=== PATIENT | male | born 1970 | race Caucasian/White ===

== ENCOUNTER → 2023-07-10 | Outpatient (CLI) | payer BC, SELFPAY ==
[2023-07-10 17:16] LABS: Amphetamine Urine VISTA NEGATIVE (<1000 ng/mL); Barbiturate Urine VISTA NEGATIVE (< 200 ng/mL); Benzodiazepine Urine VISTA NEGATIVE (< 200 ng/mL); Cocaine Urine VISTA NEGATIVE (< 300 ng/mL); Ecstacy Urine VISTA NEGATIVE (< 500 ng/mL); Methadone Urine VISTA NEGATIVE (< 300 ng/mL); PCP Urine VISTA NEGATIVE (< 25 ng/mL); THC Urine VISTA NEGATIVE (< 50 ng/mL); Vista UDS pH Range 5
== END | disposition home or self-care (01) ==
PROVIDERS: Referring Provider Anesthesiology Pain Medicine; Visit Provider Anesthesiology Pain Medicine
DX: F11.20 Opioid dependence, uncomplicated (principal)
CPT/HCPCS: 80307

== ENCOUNTER → 2024-04-30 | Outpatient (CLI) | payer BC, SELFPAY ==
--- NOTE | 2024-04-30 12:27 | NEURO_ITS ---
NCS and/or EMG Patient Report Ordering Doctor: Johnson Henley DATE OF SERVICE: 04/30/24 Simon presents with neck pain and numbness and tingling in both hands. Electrodiagnostic findings: Right median motor nerve demonstrates prolonged latency with normal amplitude and reduced conduction velocity. Right ulnar motor response, including conduction across the elbow is within normal limits. Prolonged right median sensory latency at the wrist. Prolonged right median and ulnar F?waves. Needle EMG testing was performed the upper limbs. All muscles tested, including cervical paraspinals, showed no evidence of denervation with normal motor unit action potentials. The patient refused testing of the left upper limb due to poor tolerance for the procedure. Electrodiagnostic impression: This is an abnormal study in the right upper limb 1. Electrodiagnostic findings are suggestive of right-sided median mo noneuropathy. This is consistent with a moderate right carpal tunnel syndrome. Multi Select Codes Neurology Neurology Interp Codes: 12853-79 Musc test done w/n test comp (interp) and 75484-83 Nrv cndj tst 5-6 studies (interp)
== END | disposition home or self-care (01) ==
PROVIDERS: PCP Family Medicine; Referring Provider Anesthesiology; Visit Provider Anesthesiology
DX: M54.12 Radiculopathy, cervical region (principal)
CPT/HCPCS: 95886; 95909

== ENCOUNTER 2024-07-01 05:56 | Day surgery (SDC) | payer BC, SELFPAY ==
[2024-07-01 06:35] VITALS: BP 164/87; PULSE 65; RESP 16; TEMP 36.7; O2SAT 98; BMI 43.5
[2024-07-01] MEDS: Lactated Ringers 1,000 ML 15 ML IV (06:38)
[2024-07-01 07:13] VITALS: BP 164/87; PULSE 65; RESP 16; TEMP 36.7; O2SAT 98
--- NOTE | 2024-07-01 07:13 | PRE.ANES_ITS ---
ASA Classification* ASA Classification ASA Classification: 3 Assessment & Plan Anesthesia* Anesthesia Assessment Anesthesia Assessment: Discussed sedation and/or anesthesia options, risks, benefits, and alternatives with patient/parents/legal guardian/POA. Questions invited. The patient/parents/legal guardian/POA seems to understand and agrees to proceed with anesthesia plan. Reviewed the physical assessment, medical history, allergy history and patient home medications list prior to surgery/procedure/anesthetic and documented any changes. Performed airway and anesthesia risk assessments. 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 When Was Last Pacemaker Check QUESTION #4 FULL TEXT: You/Your Family Experience fever (hyperthermia) with Anesthesia Last Oral Intake Last Oral intake: Last Oral Intake NPO since 00:00 07/01/24 06:35 Meds taken in AM with sips of water? 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 operator Female No 06/19/24 09:07 HX of Motion Sickness No 06/19/24 09:07 HX of N/V After Surgery No 06/19/24 09:07 Non-Smoker Yes 06/19/24 09:07 Duration of Surgery greater No 06/19/24 09:07 than 60 minutes Number of Risk Factors 1 06/19/24 09:07 PONV Score Low Risk 06/19/24 09:07 Height & Weight Height & Weight: Anesthesia: Height & Weight Height 5 ft 10 in 07/01/24 06:35 Weight: 137.8 kg 07/01/24 06:35 Body Mass Index (BMI) 43.5 07/01/24 06:35 Respiratory Assessment Respiratory Assessment - cold type composing machine operator: Respiratory Tract Infection Hx - cold type composing machine operator Hx Respiratory Tract Infection No 06/19/24 09:07 STOP Sleep Apnea STOP Sleep Apnea - cold type composing machine operator: STOP Sleep Apnea - cold type composing machine operator Hx Hypertension Yes 06/19/24 09:07 Hx Sleep Apnea Yes 06/19/24 09:07 CPAP No: NON COMPLIANT 06/19/24 09:07 BIPAP No 06/19/24 09:07 Do you snore loudly (louder than talking or can be heard Do you often feel tired/ fatigued/ sleepy during daytime? Has anyone observed you stop breathing during sleep? STOP Results Positive 06/19/24 09:07 QUESTION #5 FULL TEXT : Do you snore loudly (louder than talking or can be heard through closed doors)? 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 Specify any problems Hx of Preganancy in last 3 N/A 06/19/24 09:07 Months Nurse Filling Out Transfusion VLEHMAN 06/19/24 09:07 & Questions: Date: 06/19/24 06/19/24 09:07 Time: 09:22 06/19/24 09:07 Patient unable to answer at this time (ie. 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 operator: /Reproductive Hx- cold type composing machine operator Hx Now Gestational Age (in weeks): EDC: Hx Hx Para Hx Section SAB Active Medications Active Medications: Current Medications Generic Name Dose Route Start Last Admin Trade Name Freq PRN Reason Stop Dose Admin Cefazolin Sodium 3 gm/ Sodium 115 mls @ 150 mls/hr 07/01/24 07:30 Chloride IV 07/01/24 08:15 PREOP ONE Lactated Ringer's 1,000 mls @ 15 mls/hr 07/01/24 06:15 07/01/24 06:38 IV 15 mls/hr .Q48H ELENA Administration PFSH Medical History Wears dentures Wears glasses MRSA infection Uses wheelchair Arthritis Back pain Gastric reflux Sleep apnea Shortness of breath on exertion Former smoker COPD (chronic obstructive pulmonary disease) History of edema Leg cramps History of stress test History of torn meniscus of left knee Reactive airway disease with wheezing with acute exacerbation Urinary frequency Tinea cruris Sciatic pain Plantar fasciitis, bilateral Peripheral tear of meniscus of left knee Papilloma of skin of axilla Osteoarthritis of right knee Osteoarthritis of left knee Impaired fasting glucose Lumbar herniated disc Lumbosacral radiculopathy Lymphedema of both lower extremities Lymph node enlargement Median nerve entrapment Mixed hyperlipidemia Migraine VU (obstructive sleep apnea) Nocturia Multiple nodules of lung Hypertension GERD (gastroesophageal reflux disease) Failed back surgical syndrome Erectile dysfunction Dyspepsia Derangement, knee internal Depression DDD (degenerative disc disease), thoracic DDD (degenerative disc disease), lumbar Chronic right-sided low back pain with right-sided sciatica Cigarette smoker Change in hearing Cervical stenosis of spine Cervical disc disease Carpal tunnel syndrome of right wrist Anxiety Home Medications ?Medication ?Instructions ?Recorded ?Last Taken ?Type esomeprazole magnesium 40 mg 40 mg PO DAILY 08/13/23 06/30/24 History capsule,delayed release (Nexium) oxycodone 5 mg tablet 5 mg PO TID PRN pain 05/16/24 07/01/24 History lisinopril 20 mg tablet 20 mg PO DAILY 06/19/24 06/30/24 History Allergy/AdvReac Type Severity Reaction Status Date / Time prednisone Allergy Other Verified 05/16/24 08:58 Surgical History History of spinal fusion History of appendectomy History of tonsillectomy Social History Smoking Status: Former smoker quit date: 07/04/23 Review of Systems (Anesthesia) ROS Narrative System reviewed and no additional complaints, except as documented.
--- NOTE | 2024-07-01 07:18 | HP.PCM_ITS ---
History and Physical HPI CERVICAL SPINE Chief Complaint: neck pain Details: This documentation accurately reflects the service provided and the decisions made by me, Dr. Caleb Santiago MD 05/16/24 0861. Part of today?s visit was documented by [ ], acting as scribe. GADIEL VALLE is a 53 year old M here today for neck pain. Pt. advises he has been experiencing neck pain for over a year but has worsened over the past 3 months. He was referred by Dr. Henley who has done several cervical steroid injections which were not helpful. His last injections was about a month ago. He states the pain radiates down his bilateral arms to his hands and fingers. He also c/o numbness and tingling in his bilateral hands with the right side worse. He denies injury. He states he had a recent MRI at [facility] in [place]. He has had a recent EMG as well, only in his right. He states he had a lumbar fusion 9 years ago in [place]. His surgery was helpful for him however he still has some residual back pain. Says that his dexterity has decreased in the last couple of months with him having issues opening cans. He has done PT in the past multiple times Ortho Exam General General: Yes no acute distress Neurologic: Yes alert and Yes oriented x3 Spine SPINE TESTING CERVICAL THORACIC LUMBAR Musculoskeletal Strength 0=absent - 5=normal Details: Neurological exam of the upper extremities shows 5x5 power. During the assessment, the patient reported that his fingers were bothering him bilaterally from numbness and tingling. Normal sensations across all dermatomes. No midline or paraspinal tenderness. Median nerve compression test negative. Tinel's negative. Phalen's negative. Romberg's negative. Kimber's negative. Gait shows mild imbalance. Coding Level of Care Code Off vis,new,level 4 Diagnoses Carpal tunnel syndrome on both sides G56.03 Cervical myelopathy G95.9 Time Spent (min) 45 Assessment and Plan Assessment and Plan (1) Carpal tunnel syndrome on both sides: Status: Acute (2) Cervical myelopathy: Status: Acute Orders: Orders Cerv Spine 4 or 5 Views Today M54.2 - Cervicalgia Plan Obtained and reviewed xrays today with the patient. Reviewed prior MRI with the patient. These show C3-5 severe central stenosis with cord indentation without any cord signal changes. Mild to moderate stenosis at C5-6 and C6-7 also noticed. Also reviewed right EMG results which is suggestive of right-sided median mononeuropathy. This is consistent with a moderate right carpal tunnel syndrome. Explained EMG and imaging findings in detail. Patient has both carpal tunnel syndrome as well as cervical stenosis with myelopathy. He often wakes up at night to shake his hands to improve the numbness. He describes numbness in the radial palmar aspect of the hand which is consistent with carpal tunnel syndrome. This is confirmed with EMG. He also has dexterity issues and unable to open jars and has difficulty with handwriting which is worsening over the last 2 months. Explained to him the natural history of cervical myelopathy which is typically that of progression. discussed with the patient that this often requires surgical correction due to the progressive pattern. Patient has exhausted nonsurgical options such as PT, pain management, and injections with progressively worsening symptoms. I recommend C3-5 ACDF. All risk benefits and alternatives were discussed. Discussed in detail the surgery procedure and post surgical recovery. Answered any questions that he had today. Also explained that the pain over the palm of his hand into his fingers is from carpal tunnel which will not be improved from the cervical surgery. At this time, given the healing periods of the surgeries, he wishes to proceed with the carpal tunnel surgery on his R hand before seeking cervical surgery. As of today, he wishes to schedule cervical surgery the first of the year. He will be scheduled for R carpal tunnel surgery and will call us when he is ready to proceed with the ACDF. He will also work on losing weight, including improving diet in the meanwhile while he waits for surgery. He is in agreement. He will be scheduled for a right carpal tunnel release surgery. All risk benefits and alternatives were discussed in detail. The risks include but are not limited to infection, bleeding, injury to nerves and vessels, tourniquet pain, compartment syndrome, incomplete release, persistent pain, persistent numbness, need for further surgery, recurrent carpal tunnel syndrome, hematoma. Patient understands and agrees to proceed with surgery. Consent was signed.
[2024-07-01] MEDS: Cefazolin 3 GM in 0.9% Normal Saline (100mL Bag) 100 ML IV (07:30)
[2024-07-01] MEDS: Lidocaine 1% (20 ml mdv) 20 ML Vial (07:35)
[2024-07-01] MEDS: Ropivacaine 0.5% 30 ML Vial (07:35)
[2024-07-01 08:15] VITALS: BP 134/73; BP 164/87; PULSE 82; RESP 16; TEMP 36.6; O2SAT 88
--- NOTE | 2024-07-01 08:15 | PCM.POST.ANE ---
Anesthesia: Postop Eval I Current Vital Signs Temperature: 97.9 F Pulse Rate: 83 Blood Pressure: 134/73 Respiratory Rate: 18 Pulse Ox: 95 Assessment Airway patent: Yes Spontaneous unlabored respirations: Yes Mental status: Awake and Calm nausea: No Vomiting: No Anesthesia Complication: No Fluid Hydration Crystalloid volume administer (ml): 500 Total IV fluid infused: 500 Progress Note Anesthesia document: Postop Eval 1 completed: Yes
[2024-07-01 08:20] VITALS: BP 104/66; BP 164/87; PULSE 80; RESP 16; O2SAT 95
[2024-07-01 08:25] VITALS: BP 122/77; BP 164/87; PULSE 80; RESP 16; TEMP 36.2; O2SAT 94
[2024-07-01 08:27] VITALS: BP 134/73; PULSE 83; RESP 18; TEMP 36.6; O2SAT 95
--- NOTE | 2024-07-01 08:30 | POSTOPAN2_ITS ---
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
--- NOTE | 2024-07-01 08:30 | PCM.POSTANE2 ---
Anesthesia Postop Eval I Sum Postop Eval Completion status Anesthesia document: Postop Eval 1 completed: Yes Anesthesia Postop Eval I Summary Anesthesia Postop Eval I Summary: Anesthesia Postop Eval I: Assessment Summary Airway patent Yes 07/01/24 08:27 INTERNATIONAL MARKETING INTERN.GDOTT Spontaneous unlabored Yes 07/01/24 08:27 INTERNATIONAL MARKETING INTERN.GDOTT respirations Mental status Awake,Calm 07/01/24 08:27 INTERNATIONAL MARKETING INTERN.GDOTT nausea No 07/01/24 08:27 INTERNATIONAL MARKETING INTERN.GDOTT Vomiting No 07/01/24 08:27 INTERNATIONAL MARKETING INTERN.GDOTT Anesthesia Postop Eval I: Fluid Summary Crystalloid volume administer 500 07/01/24 08:27 INTERNATIONAL MARKETING INTERN.GDOTT (ml) Colloids volume administered ( ml) Blood Product volume administered (ml) Total IV fluid infused 500 07/01/24 08:27 INTERNATIONAL MARKETING INTERN.GDOTT Anesthesia Postop Eval I: Summary Notes Anesthesia Complication No 07/01/24 08:27 INTERNATIONAL MARKETING INTERN.GDOTT Anesthesia Complication Comment: Post-operative progress note Anesthesia: Postop Eval II Evaluation Mental status: Awake Pain Level: 0 nausea: No Vomiting: No
--- NOTE | 2024-07-01 11:56 | PCM.OPRPT ---
Report of Operation Date of Procedure: 07/01/24 Description of Surgical Findings:: ATTENDING SURGEON: Caleb Santiago MD CARE MANAGEMENT ASSOCIATE: none PREOPERATIVE DIAGNOSIS: Right carpal tunnel syndrome. POSTOPERATIVE DIAGNOSIS: Right carpal tunnel syndrome. PROCEDURE PERFORMED: Right open carpal tunnel release. CPT 51958 INDICATIONS FOR THE PROCEDURE: The patient is a 53-year-old gentleman, who presents with numbness in radial fingers and EMG, consistent with carpal tunnel syndrome. All conservative management and failed. After a discussion of the risks and benefits of the procedure, consent was signed for the procedure. DETAILS OF PROCEDURE: Patient was met in the preoperative holding area and the correct side was marked as the operative extremity. The patient was brought back to the operative suite and a hand table was placed. A tourniquet was placed. A timeout was performed which correctly identified the procedure to be performed, the operative site as well as the team members. Next, MAC anesthesia was induced. Local infiltration of 1% lidocaine mixed with 0.5% ropivacaine was infiltrated in the volar wrist. Next, the arm was prepped and draped in a sterile fashion. A timeout was performed again that confirmed the site and the procedure. Next, the patient's arm was exsanguinated using the Esmarch bandage and the tourniquet was inflated to 250 mmHg. A 3 cm incision was made longitudinally in line between the middle & ring ray from Kaiser's cardinal line to the wrist crease. Sharp dissection was used to the level of the palmar fascia. This was incised in line with the incision in line with its fibers. Kasden retractors used to retract the fat and the fibers out of the way and revealed the transverse carpal ligament. This was incised in the proximal distal fashion to the level of the palmar fat. Once we saw this, we retracted back in order to release the proximal end of the carpal tunnel ligament. The median nerve was visualized in its entirety throughout this part of the procedure. There were no masses in the carpal tunnel noted. The nerve did not look very hyperemic. Once I was satisfied with the release and it was checked both proximally and distally with a finger in the incision, it was irrigated with copious amounts of normal saline. Wound was then closed with 4-0 nylon in interrupted fashion. Skin was cleaned and the tourniquet was let down. The wounds were dressed with Adaptic, gauze, Webril and a sterile Ant wrap. Next, the patient was transported to the PACU in stable condition. I was present for the entire case. ESTIMATED BLOOD LOSS: Minimal. COMPLICATIONS: None. DISPOSITION: The patient will be discharged home when pain is controlled from PACU. Follow up in 2 weeks to get sutures removed. Light weightbearing restrictions. Surgeon: Caleb Santiago wick tender: Eva Castillo Procedures Musculoskeletal [id number]: Other Procedure See Report
== END 2024-07-01 09:12 | disposition home or self-care (01) ==
LOC: SDC 05:57 → AC 05:58
PROVIDERS: PCP Family Medicine; Referring Provider Orthopaedic Surgery Orthopaedic Surgery of the Spine; Visit Provider Orthopaedic Surgery Orthopaedic Surgery of the Spine
PROC: (CPT 64721; principal; 2024-07-01 07:15)
DX: G56.03 Carpal tunnel syndrome, bilateral upper limbs (principal); G95.9 Disease of spinal cord, unspecified; J44.9 Chronic obstructive pulmonary disease, unspecified; M48.02 Spinal stenosis, cervical region; I10 Essential (primary) hypertension; K21.9 Gastro-esophageal reflux disease without esophagitis; Z98.1 Arthrodesis status; Z79.899 Other long term (current) drug therapy; Z87.891 Personal history of nicotine dependence
CPT/HCPCS: 64721; 01810; J7120; J2405

== ENCOUNTER 2025-01-19 13:41 | Observation (INO) | payer BC, SELFPAY ==
[2025-01-09 10:58] LABS: Absolute Lymphocyte Count 3.05 X10^3/uL (0.83-4.51); Absolute Neutrophil Count 4.4 X10^3/uL (2.0-7.7); Basophil# 0.06 X10^3/uL; Basophil% 0.7 % (0-1); Eosinophil# 0.23 X10^3/uL; Eosinophils% 2.7 % (0-5); Hemoglobin 14.4 g/dL (13.0-16.5); Lymphocyte # 3.05 X10^3/ul (0.83-4.51); Lymphocyte % 36.1 % (19-41); Mean Corp Hgb Conc 34.3 g/dL (32-36); Mean Corpuscular Volume 90.5 fL (80-94); Mean Platelet Vol. 10.5 fl (6.2-12.0); Monocyte# 0.66 X10^3/uL; Monocyte% 7.8 % (0-10); NRBC Flagged by Analyzer 0 % (0-5); Neutrophil # 4.41 X10^3/uL (2.7-7.7); Neutrophil % 52.2 % (47-70); Platelet Count 286 K/mm3 (150-450); RBC Distribution Width CV 12.4 % (11.6-14.6); RBC Distribution Width SD 40.9 fl (35.1-43.9); Red Blood Count 4.64 M/mm3 (4.6-6.2); White Blood Count 8.5 K/mm3 (4.4-11.0)
[2025-01-09 11:45] LABS: EST Glomerular Filtration Rate 88 (>60); HIV Nonreactive (Nonreactive); Hepatitis B Surface Antibody Nonreactive; Hepatitis C Antibody Nonreactive (Nonreactive)
[2025-01-09 11:55] LABS: Anion Gap 14 (5-15); BUN 12 mg/dL (4-19); BUN/Creat Ratio 11.1 RATIO (10-20); Calcium,Total 9.4 mg/dL (7.6-11.0); Chloride 100 mmol/L (98-108); Creatinine, Serum 1.06 mg/dL (0.70-1.20); Glucose 111 mg/dL (70-99); Potassium 4.2 mmol/L (3.3-5.1); Sodium Level 137 mmol/L (133-145)
[2025-01-09 12:04] LABS: Magnesium 2.1 mg/dL (1.5-2.2)
--- NOTE | 2025-01-09 12:07 | PAT.ANESEVAL ---
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 When Was Last Pacemaker Check QUESTION #4 FULL TEXT: You/Your Family Experience fever (hyperthermia) with Anesthesia Last Oral Intake Last Oral intake: Last Oral Intake NPO since Meds taken in AM with sips of water? Meds patient instructed to take am of surgery PONV PONV - lead network architect: PONV - lead network architect Female No 01/05/25 10:08 HX of Motion Sickness No 01/05/25 10:08 HX of N/V After Surgery No 01/05/25 10:08 Non-Smoker Yes 01/05/25 10:08 Duration of Surgery greater Yes 01/05/25 10:08 than 60 minutes Number of Risk Factors 2 01/05/25 10:08 PONV Score Moderate Risk 01/05/25 10:08 Height & Weight Height & Weight: Anesthesia: Height & Weight Height 5 ft 10 in 07/01/24 06:35 Respiratory Assessment Respiratory Assessment - lead network architect: Respiratory Tract Infection Hx - lead network architect Hx Respiratory Tract Infection No 01/05/25 10:08 STOP Sleep Apnea STOP Sleep Apnea - lead network architect: STOP Sleep Apnea - lead network architect Hx Hypertension Yes: CONTROLLED WITH MED 01/05/25 10:08 Hx Sleep Apnea Yes 01/05/25 10:08 CPAP Yes: NO MACHINE CURRENTLY 01/05/25 10:08 BIPAP No 01/05/25 10:08 Do you snore loudly (louder than talking or can be heard Do you often feel tired/ fatigued/ sleepy during daytime? Has anyone observed you stop breathing during sleep? STOP Results Positive 01/05/25 10:08 QUESTION #5 FULL TEXT : Do you snore loudly (louder than talking or can be heard through closed doors)? 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 Specify any problems Hx of Preganancy in last 3 N/A 01/05/25 10:08 Months Nurse Filling Out Transfusion DSCHRIBER 01/05/25 10:08 & Questions: Date: 01/05/25 01/05/25 10:08 Time: 10:09 01/05/25 10:08 Patient unable to answer at this time (ie. confused, unrespo /Reproduction History /Reproductive History - lead network architect: /Reproductive Hx- lead network architect Hx Now No 01/05/25 10:08 Gestational Age (in weeks): EDC: Hx Hx Para Hx Section SAB No 01/05/25 10:08 [facility] Medical History (Updated 01/05/25 @ 10:25 by Nena Barnes) History of stress test History of steroid therapy History of pain when walking Wears dentures Wears glasses MRSA infection Arthritis Back pain Gastric reflux Sleep apnea Former smoker History of edema Leg cramps History of torn meniscus of left knee Reactive airway disease with wheezing with acute exacerbation Sciatic pain Plantar fasciitis, bilateral Lumbosacral radiculopathy Lymphedema of both lower extremities Lymph node enlargement Median nerve entrapment Nocturia Multiple nodules of lung Hypertension 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), thoracic DDD (degenerative disc disease), lumbar Chronic right-sided low back pain with right-sided sciatica Cervical stenosis of spine Home Medications ?Medication ?Instructions ?Recorded ?Last Taken ?Type esomeprazole magnesium 40 mg 40 mg PO DAILY 08/13/23 06/30/24 History capsule,delayed release (Nexium) oxycodone 5 mg tablet 5 mg PO TID PRN pain 05/16/24 07/01/24 History lisinopril 20 mg tablet 20 mg PO DAILY 06/19/24 06/30/24 History duloxetine 30 mg capsule,delayed 30 mg PO BID 01/05/25 Unknown History release pregabalin 50 mg capsule 50 mg PO BID 01/05/25 Unknown History Allergy/AdvReac Type Severity Reaction Status Date / Time prednisone Allergy Other Verified 01/05/25 10:03 Surgical History (Updated 01/05/25 @ 10:16 by Nena Barnes) Hx of colonoscopy History of carpal tunnel surgery of right wrist History of spinal fusion History of appendectomy History of tonsillectomy Social History Smoking Status: Former smoker quit date: 07/04/23 Audit: Pertinent Findings Pertinent Findings EKG Perinent findings: 12/30/2024. Sinus tachycardia 109 bpm. Occasional PVCs inferior infarct age undetermined. No change since 2020 per family practice. Consult pertinent findings: Family practice for preoperative clearance. 01/08/2025. # Family practice. No cardiovascular symptoms. EKG performed in office showed no change from previous EKG in 2020. Feels that patient is optimized for surgery. Recommendation Anesthesia Recommendation Anesthesia recommendation: OPTIMIZED for anesthesia
[2025-01-10 06:27] LABS: Hepatitis A AB, Total Negative (Negative)
[2025-01-19] VITALS (16 sets, daily range): BP systolic 137–181; BP diastolic 90–120; PULSE 84–99; RESP 16–20; TEMP 36.4–36.7; O2SAT 96–100; BMI 42.3; BMI 42.6
--- NOTE | 2025-01-19 09:25 | RAD_ITS ---
PROCEDURE: INTRAOPERATIVE C-ARM IMAGING OF THE CERVICAL SPINE 01/19/2025 REASON FOR EXAM: ANTERIOR CERVICAL DISC FUSION C3-4 AND C4-5 TECHNIQUE: Six 6 views of the cervical spine. COMPARISON: NO RELEVANT PRIOR. FINDINGS: Visualized vertebra are normal in height. ACDF at C3-C4 and C4-C5. Anterior fusion plate in good alignment. Endotracheal tube is present. RAD/Cerv Spine 2 or 3 Views IMPRESSION: Satisfactory ACDF. For further detail of the procedure please see the operativ e report. Reading Location: [facility]
--- NOTE | 2025-01-19 09:27 | PCM.PRE.AN2 ---
ASA Classification* ASA Classification ASA Classification: 2 Assessment & Plan Anesthesia* Anesthesia Assessment Anesthesia Assessment: Discussed sedation and/or anesthesia options, risks, benefits, and alternatives with patient/parents/legal guardian/POA. Questions invited. The patient/parents/legal guardian/POA seems to understand and agrees to proceed with anesthesia plan. Reviewed the physical assessment, medical history, allergy history and patient home medications list prior to surgery/procedure/anesthetic and documented any changes. Performed airway and anesthesia risk assessments. Anesthesia Type Anesthesia Type: General Anesthesia Focused Assessment* Airway Assessment Mouth opens: >3 cm Mallampati Score: II Focused Labs Anesthesia Preop lab: CBC WBC 8.5 K/mm3 (4.4-11.0) 01/09/25 10:01/09/25 RBC 4.64 M/mm3 (4.6-6.2) 01/09/25 10:01/09/25 Hgb 14.4 g/dL (13.0-16.5) 01/09/25 10:01/09/25 Hct 42.0 % (40-54) 01/09/25 10:01/09/25 Plt Count 286 K/mm3 (150-450) 01/09/25 10:01/09/25 CHEMISTRY Potassium 4.2 mmol/L (3.3-5.1) 01/09/25 10:01/09/25 Sodium 137 mmol/L (133-145) 01/09/25 10:01/09/25 Magnesium 2.1 mg/dL (1.5-2.2) 01/09/25 10:01/09/25 BUN 12 mg/dL (4-19) 01/09/25 10:01/09/25 Creatinine 1.06 mg/dL (0.70-1.20) 01/09/25 10:01/09/25 Glucose 111 mg/dL (70-99) H 01/09/25 10:01/09/25 COAG Pre-Assessment Diagnosis/Proposed Procedure Planned Operative Procedure(s): ANTERIOR CERVICAL DISC FUSION C3-4 C4-5 Anesthesia History Anesthesia History - electronic device monitor: Anesthesia History - electronic device monitor Hx Hospitalization No 01/05/25 10:08 Any Problems With Anesthesia No 01/05/25 10:08 Cholinesterase deficiency No 01/05/25 10:08 You/Your Family Experience No 01/05/25 10:08 fever (hyperthermia) with Relationship Recent Exposure to Contagious No 07/01/24 06:33 Disease Does patient have nerve No 01/05/25 10:08 stimulator Patient instructed to have device shut off --Does patient have Pacemaker or ICD? When Was Last Pacemaker Check QUESTION #4 FULL TEXT: You/Your Family Experience fever (hyperthermia) with Anesthesia Last Oral Intake Last Oral intake: Last Oral Intake NPO since Meds taken in AM with sips of water? Meds patient instructed to take am of surgery PONV PONV - electronic device monitor: PONV - electronic device monitor Female No 01/05/25 10:08 HX of Motion Sickness No 01/05/25 10:08 HX of N/V After Surgery No 01/05/25 10:08 Non-Smoker Yes 01/05/25 10:08 Duration of Surgery greater Yes 01/05/25 10:08 than 60 minutes Number of Risk Factors 2 01/05/25 10:08 PONV Score Moderate Risk 01/05/25 10:08 Height & Weight Height & Weight: Anesthesia: Height & Weight Height 5 ft 10 in 07/01/24 06:35 Respiratory Assessment Respiratory Assessment - electronic device monitor: Respiratory Tract Infection Hx - electronic device monitor Hx Respiratory Tract Infection No 01/05/25 10:08 STOP Sleep Apnea STOP Sleep Apnea - electronic device monitor: STOP Sleep Apnea - electronic device monitor Hx Hypertension Yes: CONTROLLED WITH MED 01/05/25 10:08 Hx Sleep Apnea Yes 01/05/25 10:08 CPAP Yes: NO MACHINE CURRENTLY 01/05/25 10:08 BIPAP No 01/05/25 10:08 Do you snore loudly (louder than talking or can be heard Do you often feel tired/ fatigued/ sleepy during daytime? Has anyone observed you stop breathing during sleep? STOP Results Positive 01/05/25 10:08 QUESTION #5 FULL TEXT : Do you snore loudly (louder than talking or can be heard through closed doors)? 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 Specify any problems Hx of Preganancy in last 3 N/A 01/05/25 10:08 Months Nurse Filling Out Transfusion DSCHRIBER 01/05/25 10:08 & Questions: Date: 01/05/25 01/05/25 10:08 Time: 10:09 01/05/25 10:08 Patient unable to answer at this time (ie. confused, unrespo /Reproduction History /Reproductive History - electronic device monitor: /Reproductive Hx- electronic device monitor Hx Now No 01/05/25 10:08 Gestational Age (in weeks): EDC: Hx Hx Para Hx Section SAB No 01/05/25 10:08 Active Medications Active Medications: Current Medications Generic Name Dose Route Start Last Admin Trade Name Freq PRN Reason Stop Dose Admin Acetaminophen 1,000 mg 01/19/25 13:15 Acetaminophen 500 Mg Tablet PO 01/19/25 13:16 X1 ONE Dexamethasone Sodium Phosphate 8 mg 01/19/25 13:15 Dexamethasone 10 Mg/Ml Vial IV 01/19/25 13:16 X1 ONE Dexamethasone Sodium Phosphate 4 mg 01/19/25 19:00 Dexamethasone 4 Mg/Ml Vial IV 01/19/25 19:01 X1 ONE Magnesium Sulfate 1 gm/ 102 mls @ 408 mls/hr 01/19/25 13:15 Dextrose IV 01/19/25 13:29 X1 ONE Cefazolin Sodium 3 gm/ N/A 30 mls @ 600 mls/hr 01/19/25 13:15 IV 01/19/25 13:17 PREOP ONE Tranexamic Acid 1,000 mg/ 110 mls @ 440 mls/hr 01/19/25 13:15 Sodium Chloride IV 01/19/25 13:29 X1 ONE Tranexamic Acid 1,000 mg/ 110 mls @ 440 mls/hr 01/19/25 14:15 Sodium Chloride IV 01/19/25 14:29 X1 ONE Insulin Human Lispro 1 - 6 unit 01/19/25 13:15 Insulin Lispro 100 Unit/Ml Insuln.Pen SC 01/19/25 19:15 Q4H PRN PRN BG>/= 180, SEE PROTOCOL Protocol PFSH Medical History History of stress test History of steroid therapy History of pain when walking Wears dentures Wears glasses MRSA infection Arthritis Back pain Gastric reflux Sleep apnea Former smoker History of edema Leg cramps History of torn meniscus of left knee Reactive airway disease with wheezing with acute exacerbation Sciatic pain Plantar fasciitis, bilateral Lumbosacral radiculopathy Lymphedema of both lower extremities Lymph node enlargement Median nerve entrapment Nocturia Multiple nodules of lung Hypertension 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), thoracic DDD (degenerative disc disease), lumbar Chronic right-sided low back pain with right-sided sciatica Cervical stenosis of spine Home Medications ?Medication ?Instructions ?Recorded ?Last Taken ?Type esomeprazole magnesium 40 mg 40 mg PO DAILY 08/13/23 06/30/24 History capsule,delayed release (Nexium) oxycodone 5 mg tablet 5 mg PO TID PRN pain 05/16/24 07/01/24 History lisinopril 20 mg tablet 20 mg PO DAILY 06/19/24 06/30/24 History duloxetine 30 mg capsule,delayed 30 mg PO BID 01/05/25 Unknown History release pregabalin 50 mg capsule 50 mg PO BID 01/05/25 Unknown History Allergy/AdvReac Type Severity Reaction Status Date / Time prednisone AdvReac stomach Verified 01/16/25 15:22 cramps Surgical History Hx of colonoscopy History of carpal tunnel surgery of right wrist History of spinal fusion History of appendectomy History of tonsillectomy Social History Smoking Status: Former smoker quit date: 07/04/23 Review of Systems (Anesthesia) ROS Narrative System reviewed and no additional complaints, except as documented.
--- NOTE | 2025-01-19 09:54 | HP.PCM_ITS ---
History and Physical MR#: [id number] Acct: [id number] Name: GADIEL VALLE Rep #: [id number] : 1970 Provider: Dr. Caleb Santiago MD Age/Sex: 54/M Location[place] [facility] [place] Status: Signed Intake Vital Signs 07/01/2406:35 Height 5 ft 10 in Intake Visit Reasons: cervical spine Accompanied by: Self Allergies prednisone Allergy (Verified 01/15/25 10:11) Other Medications ?Medication ?Instructions ?Recorded ?Confirmed ?Type esomeprazole magnesium 40 mg 40 mg PO DAILY 08/13/23 01/15/25 History capsule,delayed release (Nexium) oxycodone 5 mg tablet 5 mg PO TID PRN pain 05/16/24 01/15/25 H istory lisinopril 20 mg tablet 20 mg PO DAILY 06/19/24 01/15/25 History duloxetine 30 mg capsule,delayed 30 mg PO BID 01/05/25 01/15/25 History release pregabalin 50 mg capsule 50 mg PO BID 01/05/25 01/15/25 History PFSH Medical History History of stress test History of steroid therapy History of pain when walking Wears dentures Wears glasses MRSA infection Arthritis Back pain Gastric reflux Sleep apnea Former smoker History of edema Leg cramps History of torn meniscus of left knee Reactive airway disease with wheezing with acute exacerbation Sciatic pain Plantar fasciitis, bilateral Lumbosacral radiculopathy Lymphedema of both lower extremities Lymph node enlargement Median nerve entrapment Nocturia Multiple nodules of lung Hypertension 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 Caleb Santiago MD 01/15/25 1005. Part of today?s visit was documented by Mel HARRIS, acting as scribe. GADIEL VALLE is a 54 year old M here today for pre-op cervical spine, dos: 01/19/25. He continues to have neck pain radiating to right worse than left upper extremities mainly in the shoulder and elbow region. He has been constantly dropping objects and also has noticed balance issues. Denies any falls. 05/16/24: GADIEL VALLE is a 53 year old M here today for neck pain. Pt. advises he has been experiencing neck pain for over a year but has worsened over the past 3 months. He was referred by Dr. Henley who has done several cervical steroid injections which were not helpful. His last injections was about a month ago. He states the pain radiates down his bilateral arms to his hands and fingers. He also c/o numbness and tingling in his bilateral hands with the right side worse. He denies injury. He states he had a recent MRI at [facility] in [place]. He has had a recent EMG as well, only in his right. He states he had a lumbar fusion 9 years ago in [place]. His surgery was helpful for him however he still has some residual back pain. Says that his dexterity has decreased in the last couple of months with him having issues opening cans. He has done PT in the past multiple times Ortho Exam General General: Yes no acute distress Neurologic: Yes alert and Yes oriented x3 Spine SPINE TESTING CERVICAL THORACIC LUMBAR Musculoskeletal Strength 0=absent - 5=normal Details: Neurological exam of the upper extremities shows 5x5 power. During the assessment, the patient reported that his fingers were bothering him bilaterally from numbness and tingling. Normal sensations across all dermatomes. No midline or paraspinal tenderness. Median nerve compression test negative. Tinel's negative. Phalen's negative. Romberg's negative. Kimber's negative. Gait shows mild imbalance. Coding Level of Care Code Off vis,est,level 4 Diagnoses S/P carpal tunnel release Z98.890 Cervical myelopathy G95.9 Time Spent (min) 35 Assessment and Plan Assessment and Plan (1) S/P carpal tunnel release: Status: Acute (2) Cervical myelopathy: Status: Acute Plan Again reviewed prior x-rays and MRI cervical spine. These show C3-5 severe roberto carlos tral stenosis with cord indentation without any cord signal changes. Mild to moderate stenosis at C5-6 and C6-7 also noticed. Explained again imaging findings in detail. Patient has cervical stenosis with myelopathy. He also has dexterity issues and unable to open jars and has difficulty with handwriting which is worsening with time. Explained to him the natural history of cervical myelopathy which is typically that of progression. discussed with the patient that this often requires surgical correction due to the progressive pattern. Patient has exhausted nonsurgical options such as PT, pain management, and injections with progressively worsening symptoms. I recommend C3-5 ACDF. All risk benefits and alternatives were discussed. Discussed in detail the surgery procedure and post surgical recovery. Answered any questions that he had today. There is include but are not limited to infection, bleeding, hematoma formation, need for further surgery, injury to nerves and vessels, visceral injury, recurrent laryngeal nerve injury, dysphagia, dysphonia, spinal cord injury, nerve root injury, persistent pain, persistent numbness and weakness, DVT, pulm embolism, pneumonia, atelectasis, cardiopulmonary event. Patient understands and agrees to proceed with surgery. Patient has been on long-term opiate treatment and takes 7.5 oxycodone 4 times a day. Explained to him about reduced pain tolerance from chronic opioid intake. Explained that surgical pain may be difficult to control because of the low pain tolerance. Discussed the importance of mobility only after surgery despite the pain to help reduce complications. Patient understands. Consent was signed.
[2025-01-19] MEDS: Magnesium 1 GM over 15 mins IV (10:09)
[2025-01-19] MEDS: 0.9% Normal Saline (1000mL) 1,000 ML 15 ML IV (10:09)
[2025-01-19] MEDS: Acetaminophen 500 MG Tablet 1000 MG PO ×3 (10:10→20:14)
[2025-01-19] MEDS: Cefazolin 3 GM in Syringe 15 ML IV (10:31)
[2025-01-19] MEDS: dexAMETHasone 10 MG/ML Vial 8 MG IV (10:35)
[2025-01-19 10:38] LABS: Bedside Glucose 105 mg/dL (74-106)
[2025-01-19] MEDS: TRANEXAMIC ACID 1,000 MG in 0.9% Normal Saline (100mL Bag) 100 ML 440 MG IV ×2 (10:40→13:01)
--- NOTE | 2025-01-19 13:33 | OP.PCM_ITS ---
Procedures Musculoskeletal [id number]: Other Procedure See Report Operative Report (Standard) Operative Information Date of Procedure: 01/19/25 Pre-Operative Diagnosis: C3-5 disc degeneration with stenosis, radiculomyelopathy Post-Operative Diagnosis: Same Surgery/Procedure Performed: C3-5 ACDF molding machine tender: Yes Chiropractic Neurologist: Eva Castillo Tasks completed by first aid director: Closing, Removing tissue, Implanting device, Hemostasis: Electrocautery and Retracting Type of Anesthesia: General RN Documented Start/Stop Times: Operation Date: 01/19/25 11:30 Case Time Into Pre-Op 01/19/25 09:30 Anesthesia Start 01/19/25 10:23 Into Room 01/19/25 10:23 Out of Pre-Op 01/19/25 10:33 Procedure Start 01/19/25 10:58 Procedure End 01/19/25 13:26 Procedure Start Time: 10:58 Procedure Stop Time: 13:26 Select all DRAINS/GRAFTS/IMPLANTS that apply: Drains Drain details: Ed , Graft Graft details: Structural allograft corticocancellous strut and Implanted device Implanted device details: Medtronic [place] Elite plate instrumentation Estimated Blood Loss: 50 cc Specimen collected: No Description of surgery: Preoperative diagnosis: C3-5 disc degeneration with stenosis, radiculomyelopathy Postoperative diagnosis: Same Name of procedure: C3-5 anterior cervical discectomy and fusion with plate instrumentation - Anterior cervical fusion C3-4, CPT code 18849 - Anterior plate instrumentation C3-5, CPT code 75431/59 - Anterior cervical fusion C4-5, CPT code 34095/51 -C3-4 structural allograft bone with DBX, CPT code 83853 - C4-5 structural allograft bone with DBX, CPT code 84950 Attending surgeon: Caleb Santiago M.D. Anesthesia: Gen. endotracheal Estimated blood loss: 50 mL Complications: None Instrumentation used: [employer]tronic [place] Elite plate, LASR corticocancellous block Indications: The patient is a pleasant 54-year-old gentleman who presented with neck pain, upper extremity radiation, numbness, difficulty with dexterity and balance. MRI showed C3-5 disc degeneration with stenosis with cord compression without cord signal changes. In order to halt the progression of myelopathy, the patient requested surgical treatment. All risks and benefits of the procedure were explained to the patient. The risks include but are not limited to infection, bleeding, injury to nerves and vessels, vertebral artery injury, spinal cord injury, paralysis, vocal cord paralysis, injury to esophagus, pseudoarthrosis, need for further procedures, adjacent segment degeneration. Procedure: The patient was identified in the preoperative suite using unique patient identifiers. Skin was marked consent was taken and all questions were answered. The patient was then brought back to the operative room and a timeout was performed. General endotracheal anesthesia was given. Intraoperative neuro monitoring leads were applied. The patient was carefully positioned supine on a regular OR table. A lateral view with a C-arm was done to identify the level and to define the incision. The anterior neck was then prepped and draped in the usual fashion. A final timeout was then performed. A transverse skin incision was taken to the left of midline. Subcutaneous tissue was then divided with Bovie. Platysma was identified and cut along the incision with scissors. The fascial interval between the sternocleidomastoid and the larynx was developed. Omohyoid was identified and retracted. The esophagus with the larynx was retracted medially to reach the prevertebral fascia. Marker x-ray was performed with bent spinal needle and disc space and levels were confirmed. Longus coli muscle was elevated on both sides at and above and below C3-5 discs. Self-retaining retractors were then placed. A long handle knife was then used to perform annulotomy at C4-5. Disc fragments were removed with the pituitary. Kaiser pins were placed in C4 and C5 for disc distraction. Curettes and bur was utilized to remove cartilage from the endplates. Discectomy was performed laterally up to the uncovertebral joints. Posterior osteophytes were thinned down with the bur and adequate decompression in the central and foraminal areas were performed and PLL was thinned out. Once the disc space was prepared, trials of various sizes were utilized. Thorough irrigation was given. 6 mm LASR cortical cancellous allograft bone large footprint was then fashioned in such a way that concavities were burred out inferiorly and superiorly and half cc of DBX (demineralized bone matrix) was squeezed into the cancellous portion. The graft was then inserted into the C4-5 disc space. The retractors were then repositioned and the procedure was repeated for C3-4 disc with complete discectomy. Graft size was 7 mm at with large footprint at C3-4. The grafts were found to be in good apposition with good pullout strength. A 42 mm Medtronic [place] Elite plate was then fixed to C3-5 with 16 mm screws. A lateral x-ray was then taken to check the length of the screws. Both AP and lateral x-rays showed good positioning of plate and screws. The locking mechanism over the screw heads was then turned. Thorough irrigation was again given. Hemostasis was achieved. A Ed drain was then inserted. Closure was done with 3-0 Vicryl for the platysma and subcutaneous tissue layers and 4-0 Monocryl for the skin. Closure was done around the drain. Steri-Strips were applied and dressing was done with 4 x 4 gauze and Tegaderm. A cervical collar was then applied. The patient was then woken up from anesthesia extubated and taken to PACU in stable condition. From here, the patient will be transitioned to the floor. Intraoperative neuro monitoring was performed throughout this procedure. Motor evoked potentials were run periodically. All potentials remained at baseline throughout the procedure. I was present for the entire surgery and performed the surgery myself. Surgical Findings: See operative note Complications Complications: No
--- NOTE | 2025-01-19 13:53 | PCM.POST.ANE ---
Anesthesia: Postop Eval I Current Vital Signs Temperature: 97.9 F Pulse Rate: 92 Blood Pressure: 163/98 Respiratory Rate: 16 Pulse Ox: 100 Oxygen Delivery Method: Simple Mask Oxygen Flow Rate (L/min): 6 Assessment Airway patent: Yes Spontaneous unlabored respirations: Yes Mental status: Awake and Calm nausea: No Vomiting: No Anesthesia Complication: No Fluid Hydration Crystalloid volume administer (ml): 1,500 Total IV fluid infused: 1,500 Progress Note Anesthesia document: Postop Eval 1 completed: Yes
[2025-01-19] MEDS: Ketorolac 30 MG/ML Syringe IV ×2 (14:24→20:14)
[2025-01-19] MEDS: oxyCODONE 5 MG Tablet PO ×2 (15:38→20:12)
[2025-01-19] MEDS: 0.9% Saline Lock 10 ML Syringe IV ×4 (16:19→18:47)
[2025-01-19] MEDS: Morphine 4 MG/ML Syringe IV ×3 (16:19→22:05)
--- NOTE | 2025-01-19 16:31 | PCM.PN.HOSP ---
Reason for Visit Reason for Visit: Diagnoses Encounter for other preprocedural examination (01/19/25) Subjective Subjective 54-year-old male with history of VU not presently on CPAP, obesity, GERD, hypertension, degenerative disc disease who presented to [facility] 01/19/2025 for C3-C5 ACDF. Hospitalist consulted for postop medical management. Patient evaluated at bedside, about topical therapy, he sitting up and reports that he has significant pain, he said that when he had his lumbar surgery before his pain was so hard to control that he ended up on a pain pump and in the ICU so he is very concerned about how his pain will be controlled Objective Data Objective Data Vital Signs: Vital Signs Temp Pulse Resp BP Pulse Ox O2 Del Method O2 Flow Rate 97.6 F L 86 20 H 137/93 H 100 Nasal Cannula 4 01/19/25 15:25 01/19/25 15:25 01/19/25 15:25 01/19/25 15:25 01/19/25 15:25 01/19/25 15:01/19/25 16:06 Oxygen Flow Rate (L/min) 4 Oxygen Delivery Method Nasal Cannula Weight: 134.717 kg Body Mass Index (BMI) 42.6 Intake & Output: Intake and Output for Last 24 Hours 01/17/25 01/18/25 01/19/25 23:59 23:59 23:59 Intake Total 1352 / 1352 Balance 1352 / 1352 Lab / Micro Data 01/09/25 10:24 01/09/25 10:24 Labs: Laboratory Results - last 24 hr 01/19/25 10:12: POC Glucose 105 Micro: Microbiology 01/09/25 10:24 Swab (Method) Nasal Screen MRSA/MSSA - Final Physical Exam Narrative General: Alert, oriented, appears uncomfortable HEENT: Atraumatic, normocephalic Eyes: Anicteric, normal conjunctiva, extraocular movements grossly intact Neck: Supple Respiratory: No significant wheezes or rhonchi Cardiovascular: Regular rate and rhythm GI: Soft, nontender, nondistended Extremities: No significant peripheral edema appreciated Musculoskeletal: Moving all extremities, sitting up in side of bed Neuro: No overt focal neurological deficits Skin: No rashes appreciated Psych: Cooperative Assessment & Plan Assessment/Plan (1) Neck pain: PLAN: Plan # Hypertension -Hold home lisinopril given he is receiving Toradol today and then will be on meloxicam as this may negatively impact his kidney function - Will add hydralazine as needed, alternative agents can be scheduled the patient remains persistently hypertensive #GERD -Continue PPI # History of VU -Per documentation patient had a CPAP years ago but has not worn for 10 to 15 years # C3-5 disc degeneration with stenosis and radiculopathy -Status post C3-C5 ACDF on 01/19/[address] Santiago - Management/pain management per primary team #DVT ppx: Timing and agent at discretion of primary Anyi Hennessy MD Time spent in the patient's overall evaluation, decision-making process, review of diagnostic data, adjustment of management, discussion with other providers, nursing and ancillary staff involved in patient's care documentation, 22 Minutes Charges/Coding Visit Charges Office Visits / Consults: 31016 OV L3 Est 20min
[2025-01-19] MEDS: Methocarbamol 500 MG Tablet 1000 MG PO ×2 (17:49→20:13)
[2025-01-19] MEDS: dexAMETHasone 4 MG/ML Vial IV ×2 (17:49→23:33)
[2025-01-19] MEDS: CEFAZOLIN IV (18:47)
[2025-01-19] MEDS: Senna/Docusate Sodium 1 Tablet 2 TABLET PO (20:13)
[2025-01-19] MEDS: DULoxetine Hcl 30 MG Capsule PO (20:13)
[2025-01-19] MEDS: Pregabalin 50 MG Capsule PO (20:13)
[2025-01-20] MEDS: Morphine 4 MG/ML Syringe IV ×3 (02:00→12:35)
[2025-01-20] MEDS: CEFAZOLIN IV (02:01)
[2025-01-20 03:25] VITALS: BP 168/93; PULSE 96; RESP 17; TEMP 36.5; O2SAT 99
--- NOTE | 2025-01-20 04:50 | RAD_ITS ---
PROCEDURE: CERV SPINE 2 OR 3 VIEWS 01/20/2025 REASON FOR EXAM: S/P CERVICAL FUSION TECHNIQUE: 2 views of the cervical spine. FINDINGS: Cervical spine is visualized on the lateral view from the skull base to the C4-5 disc space. C5 is partially obscured by overlapping shoulders. Status post anterior cervical disc fusion C3 through C5 with intervertebral disc spacers appears intact and anatomic. No fracture identified. Facet degenerative changes. Left anterior neck Roderfield drain, safety pin and cervical collar. Visualized apices appear clear. RAD/Cerv Spine 2 or 3 Views IMPRESSION: Cervical spine is visualized on the lateral view from the skull base to the C4- 5 disc space. C5 is partially obscured by overlapping shoulders. Status post anterior cervical disc fusion C3 through C5 with intervertebral disc spacers appears intact and anatomic. No fracture identified. Reading Location: [id number]
[2025-01-20] MEDS: oxyCODONE 5 MG Tablet PO ×2 (05:00→10:26)
[2025-01-20] MEDS: Ketorolac 30 MG/ML Syringe IV (05:00)
[2025-01-20] MEDS: dexAMETHasone 4 MG/ML Vial IV ×2 (05:00→12:34)
[2025-01-20] MEDS: Acetaminophen 500 MG Tablet 1000 MG PO (05:00)
[2025-01-20 06:42] VITALS: BP 159/85; PULSE 87; RESP 17; TEMP 36.6; O2SAT 97
[2025-01-20 07:01] LABS: Hematocrit 42.6 % (40-54); Hemoglobin 15.2 g/dL (13.0-16.5); Mean Corp Hgb Conc 35.7 g/dL (32-36); Mean Corpuscular Hgb 31.3 pg (27.0-32.0); Mean Corpuscular Volume 87.8 fL (80-94); Mean Platelet Vol. 10.6 fl (6.2-12.0); Platelet Count 295 K/mm3 (150-450); RBC Distribution Width CV 11.8 % (11.6-14.6); RBC Distribution Width SD 38.1 fl (35.1-43.9); Red Blood Count 4.85 M/mm3 (4.6-6.2); White Blood Count 17.3 K/mm3 (4.4-11.0)
[2025-01-20 07:32] VITALS: O2SAT 95
[2025-01-20] MEDS: 0.9% Saline Lock 10 ML Syringe IV ×2 (07:41→12:35)
[2025-01-20] MEDS: Ensure Surgery 237 ML LIQUID PO (07:44)
--- NOTE | 2025-01-20 07:46 | PCM.PN.HOSP ---
Reason for Visit Reason for Visit: Diagnoses Cervicalgia (01/19/25) Encounter for other preprocedural examination (01/19/25) Objective Data Objective Data Vital Signs: Vital Signs Temp Pulse Resp BP Pulse Ox O2 Del Method O2 Flow Rate 97.9 F 87 17 159/85 H 95 Room Air 2 01/20/25 06:42 01/20/25 06:42 01/20/25 06:42 01/20/25 06:42 01/20/25 07:32 01/20/25 07:32 01/19/25 20:23 Oxygen Flow Rate (L/min) 2 Oxygen Delivery Method Room Air Weight: 297 lb Body Mass Index (BMI) 42.6 Intake & Output: Intake and Output for Last 24 Hours 01/18/25 01/19/25 01/20/25 23:59 23:59 23:59 Intake Total 1377 / 1377 825 / 825 Balance 1377 / 1377 825 / 825 Lab / Micro Data 01/20/25 06:43 01/20/25 06:43 Labs: Laboratory Results - last 24 hr 01/19/25 10:12: POC Glucose 105 01/20/25 06:43: WBC 17.3 H, RBC 4.85, Hgb 15.2, Hct 42.6, MCV 87.8, MCH 31.3, MCHC 35.7, RDW Std Deviation 38.1, RDW Coeff of Nicole 11.8, Plt Count 295, MPV 10.6 Micro: Microbiology 01/09/25 10:24 Swab (Method) Nasal Screen MRSA/MSSA - Final Radiography Diagnostic Testing: Radiology Impression Cervical Spine X-Ray 01/19/25 09:25 IMPRESSION: Satisfactory ACDF. For further detail of the procedure please see the operative report. Reading Location: [facility] Cervical Spine X-Ray 01/20/25 04:50 IMPRESSION: Cervical spine is visualized on the lateral view from the skull base to the C4-5 disc space. C5 is partially obscured by overlapping shoulders. Status post anterior cervical disc fusion C3 through C5 with intervertebral disc spacers appears intact and anatomic. No fracture identified. Reading Location: [id number] Physical Exam Narrative Seen and examined. Blood pressure is chronically elevated. BP 142/92 but was in 150s. Patient has mild shortness of breath on exertion, chronic comparably sleep apnea and was recommended CPAP but could not get CPAP or not using it. History of smoking in the past, started in his 20s about a pack per day and quit about 12 years ago. Physical exam General: Alert, Oriented x3, Cooperative. Morbid obesity BMI 42.6 kg/m? HEENT: Atraumatic, PERRLA, EOMI, Normocephalic Oral: Oral mucosa dry. Neck: Wearing cervical neck collar. Anterolateral cervical drain was removed. Mild soakage. Chest wall/Lungs: Air entry diminished in bilateral lung bases. Chronic expiratory wheezing. Cardiovascular: Regular rate, Regular Rhythm, Normal S1, Normal S2, No M/G/R Abdomen: Bowel Sounds Present, Soft, Non Tender, Non-Distended : No dysuria. No renal angle tenderness. No suprapubic tenderness. Extremities: No edema, Capillary Refill Less than 3 Seconds Skin: Left lateral surgical incision and dressing. Musculoskeletal: No Tenderness to Palpation of Joints or Extremities Neurological: Cranial nerves II-XII grossly intact, DTR 2+/4. No acute focal neurological deficit. Psych/Mental Status: Flat affect. Assessment & Plan Assessment/Plan (1) Neck pain: PLAN: Plan # Hypertension Lisinopril resumed. BP 142/92. Recommend minimal deviation of NSAIDs as it causes increased blood pressure and kidney dysfunction. 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 Santiago - Management/pain management per primary team #DVT ppx: As per orthopedic surgeon discretion Patient is medically and hemodynamically good for discharge. Advised home BP monitoring and titrate the dose of lisinopril accordingly. Follow with PCP Charges/Coding Visit Charges Inpatient E&M: 16671 Subs Hosp L2
[2025-01-20 07:53] LABS: Anion Gap 12 (5-15); BUN 14 mg/dL (4-19); BUN/Creat Ratio 13.7 RATIO (10-20); Calcium,Total 9.1 mg/dL (7.6-11.0); Carbon Dioxide 22.4 mmol/L (21.0-32.0); Chloride 99 mmol/L (98-108); Creatinine, Serum 0.99 mg/dL (0.70-1.20); EST Glomerular Filtration Rate 91 (>60); Estimated Creatinine Clearance 117.86 ml/min (50-250); Glucose 170 mg/dL (70-99); Potassium 4.6 mmol/L (3.3-5.1); Sodium Level 133 mmol/L (133-145)
[2025-01-20 10:00] VITALS: BP 142/92; PULSE 99; RESP 17; TEMP 36.8; O2SAT 97
[2025-01-20] MEDS: Pregabalin 50 MG Capsule PO (10:14)
[2025-01-20] MEDS: DULoxetine Hcl 30 MG Capsule PO (10:14)
[2025-01-20] MEDS: Meloxicam 15 MG Tablet PO (10:15)
[2025-01-20] MEDS: Pantoprazole Sodium 40 MG Tablet PO (10:16)
[2025-01-20] MEDS: Senna/Docusate Sodium 1 Tablet 2 TABLET PO (10:17)
[2025-01-20] MEDS: Methocarbamol 500 MG Tablet 1000 MG PO (10:17)
--- NOTE | 2025-01-20 11:15 | PN.ORTHO_ITS ---
Subjective Subjective Postop day 1 C3-5 ACDF. Patient is doing relatively well postoperatively with his pain well-managed. Patient has been up and walking without any assistance and has also been cleared from therapy for home discharge. Patient says that he has noticed some sore throat while swallowing however he is not avoiding any foods. Patient says that it feels like his right hand and arm initially after surgery felt like it was asleep and he had a tingling pain in that arm and hand however the patient did say that the further out from surgery that he gets the more this sensation improves. Patient says that his dressing had to be changed multiple times due to drainage, nursing reported dressing was changed approximately 2-3 times. Patient reports that his blood pressure has been running high while at the hospital. Seen with Dr. Santiago. Objective Data Objective Data Vital Signs: Vital Signs Temp Pulse Resp BP Pulse Ox O2 Del Method O2 Flow Rate 98.3 F 99 17 142/92 H 97 Room Air 2 01/20/25 10:00 01/20/25 10:00 01/20/25 10:00 01/20/25 10:00 01/20/25 10:00 01/20/25 10:00 01/19/25 20:23 Oxygen Flow Rate (L/min) 2 Oxygen Delivery Method Room Air Weight: 297 lb Body Mass Index (BMI) 42.6 Intake & Output: Intake and Output for Last 24 Hours 01/18/25 01/19/25 01/20/25 23:59 23:59 23:59 Intake Total 1377 / 1377 825 / 825 Balance 1377 / 1377 825 / 825 Lab / Micro Data 01/20/25 06:43 01/20/25 06:43 Labs: Laboratory Results - last 24 hr 01/20/25 06:43: WBC 17.3 H, RBC 4.85, Hgb 15.2, Hct 42.6, MCV 87.8, MCH 31.3, MCHC 35.7, RDW Std Deviation 38.1, RDW Coeff of Nicole 11.8, Plt Count 295, MPV 10.6, Sodium 133, Potassium 4.6, Chloride 99, Carbon Dioxide 22.4, Anion Gap 12, BUN 14, Creatinine 0.99, Estim Creat Clear Calc 117.86, Est GFR (MDRD) Non-Af 91, BUN/Creatinine Ratio 13.7, Glucose 170 H, Calcium 9.1 Micro: Microbiology 01/09/25 10:24 Swab (Method) Nasal Screen MRSA/MSSA - Final Radiography Diagnostic Testing: Radiology Impression Cervical Spine X-Ray 01/19/25 09:25 IMPRESSION: Satisfactory ACDF. For further detail of the procedure please see the operative report. Reading [facility] 01/20/25 04:50 IMPRESSION: Cervical spine is visualized on the lateral view from the skull base to the C4-5 disc space. C5 is partially obscured by overlapping shoulders. Status post anterior cervical disc fusion C3 through C5 with intervertebral disc spacers appears intact and anatomic. No fracture identified. 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 Normal sensation across all dermatomes. Drain removed. Tegaderm and gauze applied. Patient's cervical collar padding had dried blood on it so new padding was applied. Const alert, oriented x3 and no apparent distress Assessment & Plan Assessment/Plan (1) Status post cervical spinal fusion: PLAN: Plan Postop day 1 C3-5 ACDF. Obtained reviewed x-rays today which show hardware and bone graft in good position. PT/OT cleared for home discharge. Reviewed with the patient how to properly apply the cervical collar. Reviewed restrictions of no bending, lifting, twisting. Educated and reviewed the use of the incentive spirometer. Home meds include oxycodone, acetaminophen, meloxicam, methocarbamol, senna. Hypertension being managed by hospitalist. He will follow-up in the clinic in 2 weeks. Patient is in agreement.
--- NOTE | 2025-01-20 11:50 | CASEMGMT ---
Addendum entered by Lilo Willingham 01/20/25 12:07: Strata: 1 Original Note: RN?CM?SECOND CLASS WELDER?CM?to room to meet with patient for initial transition planning/care coordination?assessment.?RN?CM?introduced self and role at [facility].? Pt voices understanding and consents to?assessment?at this time.? Pt resting in bed in no distress at this time.? Pt is A/O at this time and answers all questions appropriately.?? Care providers, pharmacy, and demographics verified/updated at this time. PCP: Dr Cody Stacy Specialists: Dr Santiago-ortho, Dr Henley-pain mgnt, Dr Yang-ortho for knee, in [facility] Pharmacy: [facility] @ [place]. Pt wants [id number]. Pharmacy notified. Insurance: [employer] Prescription Benefit:?Yes LNOK: Parents, Kirsten and Dylon Living Arrangements: Lives alone in one-story home w/laundry in the basement. Indep @ home. Works full-time. Transportation:?Pt states drives self and states no transportation concerns at this time.?Mom will take him home today. DME: ? Denies using any DME and denies needs.? He denies needing or wanting a WW. He states plans to get a rollator in the future for when he has knee surgery, but does not wish to get one at this time. HHC/SNF: No hx of either. Has done aquatic OP therapy in the past. Declines needs at this time. States Dr Santiago talked w/him about walking for therapy and he will f/u with Dr Santiago in 2 wks. Pt wishes to return home and states has no concerns with going home at time of discharge.?CM?to follow for any further discharge planning/needs.? Pt voices no further concerns/needs at this time.? PLAN:??Home Carmelo MARIEN?RN?CM
--- NOTE | 2025-01-20 13:38 | PHA.DC.MC.R ---
Pharmacy [facility] Service has performed discharge medication reconciliation and counseling for this patient. The patient's discharge medication list was reviewed for discrepancies and discrepancies were resolved. The patient was counseled on the following discharge medications and changes in medications for homegoing were reviewed. The Reason for Use, instructions for use, and potential side effects were reviewed for all new medications. The patient's questions regarding all of their medications were answered. 1. Senna/docusate 2 tablets PO BID PRN constipation 2. Oxycodone 2.5-5 mg PO Q6H PRN pain 3. Methocarbamol 750 mg PO TID PRN pain/spasms 4. Meloxicam 15 mg PO daily 5. Acetaminophen 500 mg PO Q6H The patient was able to verbally demonstrate an understanding of their discharge medications. Medications at Discharge Home Medications esomeprazole magnesium 40 mg capsule,delayed release (Nexium) 40 mg PO DAILY 08/13/23 lisinopril 20 mg tablet 20 mg PO DAILY 06/19/24 duloxetine 30 mg capsule,delayed release 30 mg PO BID 01/05/25 pregabalin 50 mg capsule 50 mg PO BID 01/05/25 acetaminophen 500 mg tablet 500 mg PO Q6H #30 tabs 01/20/25 meloxicam 15 mg tablet 15 mg PO DAILY #30 tabs 01/20/25 methocarbamol 500 mg tablet 750 mg (1.5 x 500 mg) PO TID PRN pain/spasms #60 tabs 01/20/25 oxycodone 5 mg tablet 2.5 - 5 mg (0.5 - 1 x 5 mg) PO Q6H PRN pain 7 days #28 tabs 01/20/25 sennosides 8.6 mg-docusate sodium 50 mg tablet (Stimulant Laxative Plus) 2 tab PO BID PRN constipation #30 tabs 01/20/25
--- NOTE | 2025-01-20 20:31 | POSTOPAN2_ITS ---
Anesthesia Postop Eval I Sum Postop Eval Completion status Anesthesia document: Postop Eval 1 completed: Yes Anesthesia Postop Eval I Summary Anesthesia Postop Eval I Summary: Anesthesia Postop Eval I: Assessment Summary Airway patent Yes 01/19/25 13:53 MEETING MANAGER.[email or web address] Spontaneous unlabored Yes 01/19/25 13:53 MEETING MANAGER.SANKETOBUmer respirations Mental status Awake,Calm 01/19/25 13:53 MEETING MANAGER.SKOBY nausea No 01/19/25 13:53 MEETING MANAGER.SKOBY Vomiting No 01/19/25 13:53 MEETING MANAGER.SKOBY Anesthesia Postop Eval I: Fluid Summary Crystalloid volume administer 1,500 01/19/25 13:53 MEETING MANAGER.SKOBY (ml) Colloids volume administered ( ml) Blood Product volume administered (ml) Total IV fluid infused 1,500 01/19/25 13:53 MEETING MANAGER.SANKETOBUmer Anesthesia Postop Eval I: Summary Notes Anesthesia Complication No 01/19/25 13:53 MEETING MANAGER.SANKETOBUmer Anesthesia Complication Comment: Post-operative progress note Anesthesia: Postop Eval II Evaluation Mental status: Awake and Calm Pain Level: 2 nausea: No Vomiting: No Complications Anesthesia Complication: No
--- NOTE | 2025-01-20 20:31 | PCM.POSTANE2 ---
Anesthesia Postop Eval I Sum Postop Eval Completion status Anesthesia document: Postop Eval 1 completed: Yes Anesthesia Postop Eval I Summary Anesthesia Postop Eval I Summary: Anesthesia Postop Eval I: Assessment Summary Airway patent Yes 01/19/25 13:53 PRINTING EQUIPMENT MECHANIC.SKOBY Spontaneous unlabored Yes 01/19/25 13:53 PRINTING EQUIPMENT MECHANIC.SANKETOBUmer respirations Mental status Awake,Calm 01/19/25 13:53 PRINTING EQUIPMENT MECHANIC.SKOBY nausea No 01/19/25 13:53 PRINTING EQUIPMENT MECHANIC.SKOBY Vomiting No 01/19/25 13:53 PRINTING EQUIPMENT MECHANIC.SKOBY Anesthesia Postop Eval I: Fluid Summary Crystalloid volume administer 1,500 01/19/25 13:53 PRINTING EQUIPMENT MECHANIC.SKOBY (ml) Colloids volume administered ( ml) Blood Product volume administered (ml) Total IV fluid infused 1,500 01/19/25 13:53 PRINTING EQUIPMENT MECHANIC.SANKETOBUmer Anesthesia Postop Eval I: Summary Notes Anesthesia Complication No 01/19/25 13:53 PRINTING EQUIPMENT MECHANIC.SANKETOBUmer Anesthesia Complication Comment: Post-operative progress note Anesthesia: Postop Eval II Evaluation Mental status: Awake and Calm Pain Level: 2 nausea: No Vomiting: No Complications Anesthesia Complication: No
== END 2025-01-20 13:44 | disposition home or self-care (01) ==
LOC: SDC 15:04 → MS3 15:04
PROVIDERS: Anesthesiology; Student in an Organized Health Care Education/Training Program; Admitting Provider Orthopaedic Surgery Orthopaedic Surgery of the Spine; PCP Family Medicine; Referring Provider Orthopaedic Surgery Orthopaedic Surgery of the Spine; Visit Provider Orthopaedic Surgery Orthopaedic Surgery of the Spine
PROC: (CPT 22551; principal; 2025-01-19 11:00)
DX: M48.02 Spinal stenosis, cervical region (principal); G99.2 Myelopathy in diseases classified elsewhere; Z68.41 Body mass index [BMI] 40.0-44.9, adult; K21.9 Gastro-esophageal reflux disease without esophagitis; I10 Essential (primary) hypertension; Z87.891 Personal history of nicotine dependence; M54.12 Radiculopathy, cervical region; Z79.899 Other long term (current) drug therapy; E66.9 Obesity, unspecified
CPT/HCPCS: 22551; 22552 ×2; 20931; 22845; 00670; 36415; 72040; 76000; 80048; 82962; 83735; 85025; 85027; 86703; 86706; 86708; 86803; 86850; 86900; 86901; 87081; 94668; 96374; 96375; 96376; 97162; 97166; 97530; 97535; 99221; C1713; A4216; G0378; J2405; J3475